=== PATIENT | female | born 1970 | race Caucasian/White ===

== ENCOUNTER → 2016-05-16 | Outpatient (CLI) | payer OTHER ==
--- NOTE | 2016-05-16 09:41 | MA ---
Screening Digital Mammogram With iCAD Indication: Routine screening. Technique: Standard cephalocaudal and mediolateral oblique projections are obtained. This examinati on was processed with the iCAD computer-aided detection system. Comparison: May 2015, 2014, May 2013, and April 2011 Breast density: Type C. Findings: CAD was reviewed. A focal asymmetry with minimal architectural distortion in the inner left breast in the CC view only has no correlate on the MLO view. The right mammograms are negative. Impression: Developing asymmetry versus superimposed fibroglandular tissue in the inner left breast. BI-RADS 0: Needs additional imaging evaluation. Recommendation: Spot compressed CC and true lateral view left breast. An asymmetry or distortion pers ists, persist with rolled views and left breast ultrasound at the discretion of the interpreting radi ologist. [facility] will send a result letter to the patient. Negative mammography should not preclude additional workup of a clinically suspicious finding. The patient's information is entered into a reminder system with a target due date for her next mammo gram.
== END ==
LOC: BRMIMAGING 08:20
DX: Z12.31 Encounter for screening mammogram for malignant neoplasm of breast (principal)
CPT/HCPCS: G0202

== ENCOUNTER → 2016-05-20 | Outpatient (CLI) | payer OTHER ==
--- NOTE | 2016-05-20 14:40 | MA ---
Diagnostic Digital Mammogram Left Breast With iCAD Analysis Reason for examination: Evaluate nodular asymmetry noted in the medial left breast on the screening m ammographic study May 16, 2016. Technique: Craniocaudal spot compression view as well as rolled medial and rolled lateral craniocauda l views are obtained. Also, a true lateral is performed. The examination is processed by the [employer]er-aided detection system. Findings: The abnormality does not persist on diagnostic evaluation and it was probably related to spear perimposition of normal glandular elements on the screening study. Impression: Negative diagnostic mammography. BI-RADS: 1. Recommendation: Resume routine mammographic screening in one year as long as physical examination is negative. A verbal report was given to the patient. [facility], [facility] with send a result letter.
== END ==
LOC: FIMAGING 13:58
PROVIDERS: ATTEND Obstetrics & Gynecology
DX: Z03.89 Encounter for observation for other suspected diseases and conditions ruled out (principal)
CPT/HCPCS: G0206

== ENCOUNTER → 2017-05-18 | Outpatient (CLI) | payer OTHER | LOC: BRMIMAGING 07:54 | PROVIDERS: ATTEND Obstetrics & Gynecology | DX: Z12.31 Encounter for screening mammogram for malignant neoplasm of breast (principal) ==

== ENCOUNTER → 2018-05-23 | Outpatient (CLI) | payer OTHER | LOC: BRMIMAGING 08:10 | PROVIDERS: ATTEND Hospitalist | DX: Z12.31 Encounter for screening mammogram for malignant neoplasm of breast (principal) ==